=== PATIENT | male | born 1995 | race African-American/Black ===

== ENCOUNTER 2024-05-10 20:25 | Emergency (ER) | payer OTHER, SELFPAY ==
[2024-05-10 20:46] VITALS: BP 159/95; PULSE 113; RESP 16; TEMP 38.4; O2SAT 96; BMI 34.9
--- NOTE | 2024-05-11 00:27 | ED_ITS ---
HPI - Ear Problem General Chief complaint: Ear Stated complaint: hearing loss, bilat ear pain, headache Time Seen by Provider: 05/11/24 00:19 Source: patient Mode of arrival: Ambulatory History of Present Illness HPI Narrative: 28-year-old male presents by private vehicle for bilateral ear pain, headache. Ear pain has been ongoing for 1 week, but recently has had some hearing loss and discharge from his right ear. When symptoms began 1 week ago he saw his PCP, who prescribed NSAIDs but per pt report no other therapies were recommended. Patient reports generalized headache. Noted to have temperature 101.1? F on arrival Related Data Previous Rx's Medication Instructions Recorded amoxicillin 875 mg tablet 875 mg PO Q12H #14 tabs 05/11/24 Allergies Allergy/AdvReac Type Severity Reaction Status Date / Time No Known Drug Allergies Allergy Verified 05/10/24 20:46 Patient History Social History Smoking Status: Never smoker Smoking Status: Never smoker alcohol intake frequency: a few times a month Substance Use Type: does not use Exam Initial Vital Signs Initial Vital Signs: Vital Signs Temperature 101.1 F H 05/10/24 20:46 Pulse Rate 113 H 05/10/24 20:46 Respiratory Rate 16 05/10/24 20:46 Blood Pressure 159/95 H 05/10/24 20:46 Pulse Oximetry 96 05/10/24 20:46 Oxygen Delivery Method Room Air 05/10/24 20:46 Const: Awake, alert, no acute distress, nontoxic appearing Ears: bilateral auditory canal swelling/tenderness with speculum insertion. Crusting discharge R ear, unable to visualize TM due to pain/suspect perforation. L TM intact, fluid buildup present Mouth: Mucous membranes moist, no pharyngeal erythema or exudates Cardiac: regular rate, regular rhythm Skin: Warm, Dry, intact, no rashes Neuro: AO x3, CN II-XII grossly intact, moves all extremities Course Orders Ordered: Discontinued Medications Ciprofloxacin/Dexamethasone (Ciprofloxacin/Dexameth Otic Susp) 4 drops EAR-BOTH NOW ONE Stop: 05/11/24 00:27 Last Admin: 05/11/24 00:49 Dose: 4 drops Documented By: Ketorolac Tromethamine (Ketorolac 30 Mg/Ml Vial) 30 mg IM NOW ONE Stop: 05/11/24 00:27 Last Admin: 05/11/24 00:35 Dose: 30 mg Documented By: Vital Signs Vital signs: Vital Signs - 8 hr 05/10/24 20:46 05/11/24 00:51 Temperature 101.1 F H 98.5 F Pulse Rate 113 H 85 Respiratory Rate 16 18 Blood Pressure 159/95 H 135/78 Pulse Oximetry 96 98 Oxygen Delivery Method Room Air Room Air Medical Decision Making MDM Narrative Medical decision making narrative: Suspect bilateral otitis externa, right greater than left. Patient has crusting discharge on right ear, suspect TM perforation on the right-hand side. Reports sore throat, pharynx normal on exam. No evidence of strep throat or other bacterial infection. Patient given Ciprodex drops to start tonight. Since the right TM was unable to be completely visualized we will treat empirically for otitis media with oral antibiotics. Patient counseled to continue to take Tylenol and ibuprofen as needed for pain or fever. Strongly recommended PCM follow up for continued monitoring of his tympanic membrane. Discharge Plan Departure Patient Disposition: Home Clinical Impression: Otitis externa Instructions: DI for Otitis Externa Activity Restrictions/Additional Instructions: On your exam today it appears as though you have otitis externa, or an external ear infection. It also appears as though you have eardrum rupture on the right- hand side. Usually this will heal itself, however this needs to be closely monitored by your primary care doctor. In addition I am sending you on a course of oral antibiotics that you should take for 5 days. Finish all of these medications even if you feel improved. Take 1000 mg of Tylenol and 400 mg of ibuprofen every 4-6 hours. Take no more than 1000 mg of Tylenol daily. Prescriptions: New amoxicillin 875 mg tablet 875 mg PO Q12H Qty: 14 0RF Stand Alone Forms: Patient Portal/API, Work Release Note
[2024-05-11] MEDS: KETOROLAC 30 MG/ML VIAL IM (00:35)
[2024-05-11] MEDS: CIPROFLOXACIN/DEXAMETH OTIC SUSP 4 DROPS EAR-BOTH (00:49)
[2024-05-11 00:51] VITALS: BP 135/78; PULSE 85; RESP 18; TEMP 36.9; O2SAT 98
== END 2024-05-11 00:52 | disposition home or self-care (01) ==
PROVIDERS: Emergency Provider Emergency Medicine
DX: H60.93 Unspecified otitis externa, bilateral (principal); R51.9 Headache, unspecified
CPT/HCPCS: 96372; 99283; J1885